=== PATIENT | female | born 1965 | race Caucasian/White ===

== ENCOUNTER 2017-11-18 20:10 | Emergency (ER) | payer OTHER ==
--- NOTE | 2017-11-18 21:03 | RAD ---
LEFT ANKLE THREE VIEWS: 11/18/17 HISTORY: Ankle injury. There is a medial malleolar fracture present which is nondisplaced. I do not see a definitive associa lyric fibular or posterior malleolar fracture. This could indicate there is a more proximal fibular fra cture present. IMPRESSION: Medial malleolar fracture. Consideration for tib/fib film to evaluate for a more proximal fibular fra cture. POS: [facility]
--- NOTE | 2017-11-18 21:11 | RAD ---
LEFT TIBIA AND FIBULA TWO VIEWS: 11/18/17 HISTORY: Injury to tib/fib. Nondisplaced medial malleolar fracture is seen. I do not see any definite signs of any fibular fractu re. IMPRESSION: Medial malleolar fracture. POS: [facility]
== END 2017-11-18 21:55 | disposition home or self-care (01) ==
LOC: NAV ERS 20:10
DX: S82.52XA Displaced fracture of medial malleolus of left tibia, initial encounter for closed fracture (principal); W18.09XA Striking against other object with subsequent fall, initial encounter
CPT/HCPCS: 29125